=== PATIENT | female | born 1980 | race Caucasian/White ===

== ENCOUNTER 2019-06-30 11:46 | Outpatient (REF) | payer BC, SELFPAY ==
--- NOTE | 2019-06-30 11:05 | PAPFT_PTH ---
PATIENT: China Livingston LOC: [facility] U#:[id number] AGE/SX: 39/F ROOM: RE06/30/[address]: Kerri Alcaraz, PhD STARS SPECIALIST : 1980 BED: DIS: 06/30/2019 SPEC #: [id number] RECD: 06/30/19 12:56 STATUS: KAYE REMimi #: [id number] LOC: 06/30/19 11:[address]: Kerri Alcaraz DEPT: [facility] Cytology RECD BY: Daria Hernandez ENTERED: 06/30/19 12:56 SP TYPE: PAPFT OTHR DR: June Castro APRN Tissues: 1 - CX/ENDOCX FOR PAP SMEARS Procedures: PAP THIN PREP/UVM Screening HPV DNA PROBE Comments: [id number] (CHLAMYDIA/GC)
[2019-07-03 15:08] LABS: Chlamydia Result Negative (Negative); GC Result Negative (Negative)
== END 2019-06-30 12:06 ==
LOC: LBN 11:46
PROVIDERS: Visit Provider Nurse Practitioner
DX: Z12.4 Encounter for screening for malignant neoplasm of cervix (principal); Z11.3 Encounter for screening for infections with a predominantly sexual mode of transmission; Z11.51 Encounter for screening for human papillomavirus (HPV)
CPT/HCPCS: 87491; 87591; 88142; 87624

== ENCOUNTER 2021-11-14 18:03 | Outpatient (REF) | payer BC, SELFPAY ==
--- NOTE | 2021-11-14 15:30 | PAPFT_PTH ---
PATIENT: China Livingston LOC: [facility] U#:[id number] AGE/SX: 41/F ROOM: RE11/14/[address]: June Castro APRN : 1980 BED: DIS: 11/14/2021 SPEC #: [id number] RECD: 11/14/21 18:12 STATUS: KAYE REMimi #: [id number] LOC: 11/14/21 15:[address]: June Castro DEPT: [facility] Cytology RECD BY: Daria Hernandez Tissues: 1 - CX/ENDOCX FOR PAP SMEARS Procedures: PAP THIN PREP/UVM Screening HPV DNA PROBE Comments: [id number]
== END 2021-11-14 18:04 | disposition home or self-care (01) ==
LOC: LBN 18:03
DX: Z12.4 Encounter for screening for malignant neoplasm of cervix (principal); Z11.51 Encounter for screening for human papillomavirus (HPV)
CPT/HCPCS: 88142; 87624

== ENCOUNTER 2021-11-29 04:08 | Outpatient (CLI) | payer BC, SELFPAY ==
[2021-11-29 13:11] LABS: ALT 26 U/L (14-59); AST 20 U/L (15-37); Albumin 4.2 g/dL (3.4-5.0); Alkaline Phosphatase 51 U/L (46-116); Anion Gap 5.7 mmol/L (3-11); BUN 16 mg/dL (7-18); Bilirubin, Total 1.2 mg/dL (0.2-1.0); CO2 29.3 mmol/L (21.0-32.0); CREATININE 0.9 mg/dL (0.55-1.02); Calcium 9.4 mg/dL (8.5-10.1); Calculated LDL 88 mg/dL (<100); Chloride 105 mmol/L (98-107); Cholesterol 178 mg/dL (<200); Glucose 80 mg/dL (74-106); HDL Cholesterol 85 mg/dL (40-60); Potassium 4.7 mmol/L (3.5-5.1); Sodium 140 mmol/L (136-145); Total Protein 7.1 g/dL (6.4-8.2); Triglyceride 29 mg/dL (<150)
== END 2021-11-29 04:09 | disposition home or self-care (01) ==
DX: Z00.00 Encounter for general adult medical examination without abnormal findings (principal); Z13.220 Encounter for screening for lipoid disorders
CPT/HCPCS: 36415; 80053; 80061

== ENCOUNTER → 2022-01-26 00:10 | Outpatient (CLI) | payer BC, SELFPAY ==
--- OUTSIDE RECORDS SUMMARY | 2022-01-26 00:12 | XMS_ITS | Encounter Summary ---
:1980 Author Organization [facility] Address [address] [place] [address] Care Team Providers Name Role Phone Unavailable Primary Care Provider Unavailable Encounter Details Date Type Department Care Team Description 06/30/2007 Results Only [facility] conversion [address] [place] [address] Social History Tobacco Use Types Packs/Day Years Used Date Never Assessed Sex Assigned at Date Recorded Not on file documented as of this encounter Plan of Treatment Not on filedocumented as of this encounter Procedures Procedure Name Priority Date/Time Associated Diagnosis Comme [facility] CYTOPATHOLOGY Routine 06/30/2007 0:00 EST Results for this procedure are i n the results section . documented in this encounter Results CYTOPATHOLOGY (06/30/2007 0:00 EST) Pathology Report: CYTOPATHOLOGY REPORT [facility] Reports generated via electronic interface contain jericho ginal data; however they are lacking the format of the original re port. Caution should be taken when reading/interpreting unfo rmatted reports. Name: ? CHAIM LIVINGSTON ? Accession #: ? [id number] : ? 1980 (Age: 27) ??F ?Collect Date: ? 06/06 Location: ? [facility] ? Receive Date : ? 07/02/2007 Provider: ?SANG FERREIRA Copy to: ? Specimen/Source: ?ThinPrep Pap Test, E ndocervix, processed on schoox ThinPrep Imaging System, with manual evaluation Last Menstrual Period: ? 05/29/07 Hormonal/Contraceptive Status: ? Control Pills Other: ? HPVA - HPV testing requested if ASC-US on the current ThinPrep Pap test. ? SPECIMEN ADEQUACY ? Satisfactory for Evaluation - transformation zone component present GENERAL CATEGORIZATION ? Negative for Intraepithelial Lesion or Malignan cy INTERPRETATION ? Reactive cellular savannah nges associated with inflammation present (includes repair). ? Document reviewed and electronically signed by: ? TRAVIS MONTALVO [facility] ? Report Date: ??07/07/2007 16:47 End of Report Specimen Performing Organization Address City/State/ZIP Code Phon e Number [facility] [address] [place] [address] SERVICES [facility] [address] [place] [address] documented in this encounter Visit Diagnoses Not on filedocumented in this encounter
--- OUTSIDE RECORDS SUMMARY | 2022-01-26 00:12 | XMS_ITS | Encounter Summary ---
:1980 Author Organization [facility] Address [address] [place] [address] Care Team Providers Name Role Phone Mc Ernandez MD Primary Care Provider Unavailable Encounter Details Date Type Department Care Team Description 07/03/2019 Lab Requisition [facility] Eugene Alcaraz NP Pathology & Laboratory [address] [facility] [address] [place] [phone] (Wo rk) Social History Tobacco Use Types Packs/Day Years Used Date Never Assessed Sex Assigned at Date Recorded Not on file documented as of this encounter Plan of Treatment Not on filedocumented as of this encounter Procedures Procedure Name Priority Date/Time Associated Comments Diagnosis PAP TEST Today 06/30/2019 11:05 Results for this EST procedure are i n the results section. HUMAN PAPILLOMAVIRUS Today 06/30/2019 11:05 Res ults for this (HPV) DETECTION-HIGH EST procedu re are in RISK TYPES the results section. documented in this encounter Results HUMAN PAPILLOMAVIRUS (HPV) DETECTION-HIGH RISK TYPES (06/30/2019 11:05 EST) Human Papillomavirus NegativeComment: No Negative [facility] (HPV) Detection-High E6 or E7 mRNA is CENTER LABORATOR Y Types detected from HPV SERVICES types 16,18,31,33,35,39,45 ,51,52,56,58,59,66, and 68 by automobile tire builder mediated amplification. Specimen Pap Test - Cervix and/or Endocervix Performing Organization Address City/State/ZIP Code Phon e Number [facility] [address] [place] [address] SERVICES PAP TEST (06/30/2019 11:05 EST) Specimens A. Cervix and/or [facility] Endocervix, , CENTER ThinPrep Imaging LABORATORY System with Manual SERVICES Evaluation Specimen Adequacy Satisfactory for [facility] Evaluation - CENTER transformation zone LABORATORY component absent SERVICES General Negative for [facility] Categorization intraepithelial CENTER lesion or malignancy LABORATORY SERVICES Attestation . [facility] Electronically By the signature below, the attending physician certifies that they have personally conducted a gross and/or microscopic CENTER signed by Troy, examination of the described specimens and rendered or confirmed the above diagnosis. LABORATORY GRECIA Dugan CT(ASCP)(IAC) o n 07/13/2019 at 16 03 Clinical History NONE [facility] SERVICES HPV The result for the Human Pap illomavirus (HPV) Detection-High Risk Types is Negative. No E6 or E7 mRNA is detected from HPV types 16,18,31,33,35,39,45,51,52,56,58,59,66, and 68 by automobile tire builder mediated [facility] amplification.Testing was pe rformed on specimen [id number] and was resulted on 07/13/2019 0819 EST by ANN, LAB INSTRUMENT RESULTS IN [facility] SERVICES Scanned Images [facility] SERVICES Specimen Pap Test - Cervix and/or Endocervix Performing Organization Address City/State/ZIP Code Phon e Number [facility] [address] [place] [address] SERVICES documented in this encounter Visit Diagnoses Not on filedocumented in this encounter Care Teams Manager Cardiac Cath Relationship Specialty Start Date End Date Mc Ernandez MD PCP - General 06/11/15 documented as of this encounter
--- OUTSIDE RECORDS SUMMARY | 2022-01-26 00:12 | XMS_ITS | Encounter Summary ---
:1980 Author Organization Address [address] [place] [address] Care Team Providers Name Role Phone Mc Ernandez MD Primary Care Provider Unavailable Encounter Details Date Type Department Care Team Description 06/30/2019 Lab Requisition [facility] Unknown, Provider, Pathology & Laboratory [facility] [address] [place] [address] [place] [address] Social History Tobacco Use Types Packs/Day Years Used Date Never Assessed Sex Assigned at Date Recorded Not on file documented as of this encounter Plan of Treatment Not on filedocumented as of this encounter Procedures Procedure Name Priority Date/Time Associated Comments Diagnosis CHLAMYDIA/N. Routine 06/30/2019 11:05 Results for this GONORRHOEAE AMPLIFIED EST proced ure are in RNA, THINPREP the results section. documented in this encounter Results CHLAMYDIA/N. GONORRHOEAE AMPLIFIED RNA, THINPREP (06/30/2019 11:05 EST) Pathologist Sig nature Gonococcus Result Negative Negative [facility] SERVICES Chlamydia Result Negative Negative [facility] SERVICES Specimen Pap Test - Cervix and/or Endocervix Performing Organization Address City/State/ZIP Code Phon e Number [facility] [address] [place] [address] SERVICES documented in this encounter Visit Diagnoses Not on filedocumented in this encounter Care Teams Customer Care Specialist Relationship Specialty Start Date End Date Mc Ernandez MD PCP - General 06/11/15 documented as of this encounter
--- OUTSIDE RECORDS SUMMARY | 2022-01-26 00:12 | XMS_ITS | Encounter Summary ---
:1980 Author Organization [facility] Address [address] [place] [address] Care Team Providers Name Role Phone Unavailable Primary Care Provider Unavailable Encounter Details Date Type Department Care Team Description 08/25/2009 Orders Only [facility] Drew Weir, Laboratory Services - ASSOCIATE DEAN [facility] [address] [place] [address] [place], [place] [address] [phone] Social History Tobacco Use Types Packs/Day Years Used Date Never Assessed Sex Assigned at Date Recorded Not on file documented as of this encounter Plan of Treatment Not on filedocumented as of this encounter Procedures Procedure Name Priority Date/Time Associated Diagnosis Comme [facility] CYTOPATHOLOGY Routine 08/25/2009 0:00 EST Results for this procedure are i n the results section . documented in this encounter Results CYTOPATHOLOGY (08/25/2009 0:00 EST) Pathology Report: CYTOPATHOLOGY REPORT ? [facility] ? LAB Reports generated via [employer] interface contain original data; ? however they are lacking the format of the original report. ? Caution should be taken when reading/interpreting unformatted reports. ? Name: ? DIEGO CHAIM ? Accession #: ? [id number] ? : ? 1980 (Age: 29) ??F ?Collect Date: ? 08/25/2009 ? Location: ? [facility] ? Receive Date: ? 08/25/2009 ? Provider: ?DREW D C HAMBERLAIN ASSOCIATE DEAN ? Copy to: ? Specimen/Source: ? Pap Test, Cervix/Endocervix, ThinPrep Imaging System ? with manual evaluation ? Last Menstrual Period: ? 12/28/09 ? Hormonal/Contraceptive Statu s: ? Control Pills ? Previous Gynecologic Patholo gy: ? Yes: Abn pap ? HPV ? Treatment History: ? Colposcopy: 2006 ? SPECIMEN ADEQUACY ? Satisfactory for Eval uation ? - transformation zone compon ent present ? GENERAL CATEGORIZATION ? Negative for Intraepi thelial Lesion or Malignancy ? Document reviewed and electr onically signed by: ? Hannah Gee, SCT( ASCP) ? Report Date: ??// 2009 15:28 ? End of Report ? Specimen Performing Organization Address City/State/ZIP Code Phon e Number [facility] [address] [place] [address] SERVICES [facility] [address] [place] [address] documented in this encounter Visit Diagnoses Not on filedocumented in this encounter
--- OUTSIDE RECORDS SUMMARY | 2022-01-26 00:12 | XMS_ITS | Encounter Summary ---
:1980 Author Organization [facility] Address [address] [place] [address] Care Team Providers Name Role Phone Unavailable Primary Care Provider Unavailable Encounter Details Date Type Department Care Team Description 10/18/2010 Results Only [facility] Tre Combs CNM Laboratory Services - [address] [place] [address] [address] [facility] [place] [address] [phone] Social History Tobacco Use Types Packs/Day Years Used Date Never Assessed Sex Assigned at Date Recorded Not on file documented as of this encounter Plan of Treatment Not on filedocumented as of this encounter Procedures Procedure Name Priority Date/Time Associated Diagnosis Comme [facility] CYTOPATHOLOGY Routine 10/18/2010 0:00 EDT Results for this procedure are i n the results section . documented in this encounter Results CYTOPATHOLOGY (10/18/2010 0:00 EDT) Pathology Report: CYTOPATHOLOGY REPORT ? [facility] ? LAB Reports generated via electr onic interface contain original data; ? however they are lacking the format of the original report. ? Caution should be taken when reading/interpreting unformatted reports. ? Name: ? CHAIM LIVINGSTON ? Accession #: ? [id number] ? : ? 1980 (Age: 30) ??F ?Collect Date: ? 10/18/2010 ? Location: ? [facility] ? Receive Date: ? 10/19/2010 ? Provider: ?ANEA LELON G CNM ? Copy to: ? Specimen/Source: ? Pap Test, Source Not Provided, ThinPrep Imaging System ?? with manual evaluation ? Last Menstrual Period: ? 5/20/10 ? Menstrual/ Status: ? Post ? Previous Gynecologic Patholo gy: ? Yes: abnormal pap ? Treatment History: ? Colposcopy: 2006, paps neg s oyla ? SPECIMEN ADEQUACY ? Satisfactory for Eval uation ? - transformation zone compon ent present ? GENERAL CATEGORIZATION ? Negative for Intraepi thelial Lesion or Malignancy ? Document reviewed and electr onically signed by: ? Garland Stumler, CT( CP) ? Report Date: ??03/21/ 2011 13:14 ? End of Report ? Specimen Performing Organization Address City/State/ZIP Code Phon e Number [facility] [address] [place] [address] SERVICES [facility] [address] [place] [address] documented in this encounter Visit Diagnoses Not on filedocumented in this encounter
--- OUTSIDE RECORDS SUMMARY | 2022-01-26 00:12 | XMS_ITS | Encounter Summary ---
:1980 Author Organization [facility] Address [address] [place] [address] Care Team Providers Name Role Phone Mc Ernandez MD Primary Care Provider Unavailable Encounter Details Date Type Department Care Team Description 11/15/2021 Lab Requisition [facility] June Castro NP Encounter for other Pathology & [address] [facility] Laboratory Medicine [place], [place] [address] [facility] [address] [place], [place] [phone] (Wo rk) [address] [phone] Social History Tobacco Use Types Packs/Day Years Used Date Never Assessed Sex Assigned at Date Recorded Not on file documented as of this encounter Plan of Treatment Not on filedocumented as of this encounter Procedures Procedure Name Priority Date/Time Associated Comments Diagnosis PAP TEST Today 11/14/2021 15:30 Encounter for other Resu lts for this EDT general examination procedur e are in the results section. HUMAN PAPILLOMAVIRUS Today 11/14/2021 15:30 Encounter for ot her Results for this (HPV) DETECTION-HIGH EDT general examination procedure are in RISK TYPES the results section. documented in this encounter Results HUMAN PAPILLOMAVIRUS (HPV) DETECTION-HIGH RISK TYPES (11/14/2021 15:30 EDT) Pathologist Sig nature Human Papillomavirus Negative Negative [facility] (HPV) Detection-High LABORATORY SERVICES Types Specimen Pap Test - Cervix and/or Endocervix Performing Organization Address City/State/ZIP Code Phon e Number [facility] [address] [place] [address] SERVICES PAP TEST (11/14/2021 15:30 EDT) Specimens A. Cervix and/or [facility] Endocervix , ThinPrep CENTER Imaging System with LABORATORY Manual Evaluation SERVICES Specimen Adequacy Satisfactory for [facility] MEDICAL Evaluation - CENTER transformation zone LABORATORY component present SERVICES General Negative for [facility] intraepithelial HARLEM lesion or malignancy LABORATORY SERVICES Attestation . [facility] CENTER signed by IRINEO Cline CT(ASCP ) on SERVICES 11/18/2021 at 08 09 Clinical History See below [facility] LABORATORY SERVICES HPV The result for the Human Pap illomavirus (HPV) Detection-High Risk Types is Negative. No E6 or E7 mRNA is detected from HPV types 16,18,31,33,35,39,45,51,52,56,58,59,66, and 68 by board mixer tender mediated [facility] amplification.Testing was pe rformed on specimen [id number] and was resulted on 11/18/2021 0803 EDT by ANN, LAB INSTRUMENT RESULTS IN [facility]ORATORY SERVICES Performing Lab [facility] LABORATORY SERVICES Scanned Images [facility] LABORATORY SERVICES Specimen Pap Test - Cervix and/or Endocervix Performing Organization Address City/State/ZIP Code Phon e Number [facility] [address] [place] [address] SERVICES documented in this encounter Visit Diagnoses Diagnosis Encounter for other general examination documented in this encounter Care Teams Radiology Equipment Servicer Relationship Specialty Start Date End Date Mc Ernandez MD PCP - General 06/11/15 documented as of this encounter
--- OUTSIDE RECORDS SUMMARY | 2022-01-26 00:12 | XMS_ITS | Encounter Summary ---
:1980 Author Organization [facility] Address [address] [place] [address] Care Team Providers Name Role Phone Unavailable Primary Care Provider Unavailable Encounter Details Date Type Department Care Team Description 10/27/2013 Results Only [facility] Jada Morrow, [address] [phone] (Wo rk) Social History Tobacco Use Types Packs/Day Years Used Date Never Assessed Sex Assigned at Date Recorded Not on file documented as of this encounter Plan of Treatment Not on filedocumented as of this encounter Procedures Procedure Name Priority Date/Time Associated Diagnosis Comme nts PAP TEST- RESULT Routine 10/27/2013 0:00 EDT Resu lts for this ONLY procedure are i n the results section. documented in this encounter Results PAP TEST- RESULT ONLY (10/27/2013 0:00 EDT) Pathology Report: CYTOPATHOLOGY REPORT [facility] Reports generated via electronic interface contain jericho ginal data; however they are lacking the format of the original re port. Caution should be taken when reading/interpreting unfo rmatted reports. Name: ? CHAIM LIVINGSTON ? Accession #: ? [id number] ? : ? 1980 (Age: 33) ??F ?Collect Da te: ? 10/27/2013 ? Location: ? [facility] ? Receive Date: ? 014 ? Provider: JADA PARIS CN Copy to: SANG FERREIRA ? Final Report SPECIMEN ADEQUACY ? Satisfactory for Evaluation - transformation zone component present GENERAL CATEGORIZATION ? Negative for Intraepithelial Lesion or Malignan cy ?? Last Menstrual Period: 11/06/12 Menstrual/ Status: ?? Previous Gynecologic Pathology: Yes: Abn Pap ? 2006, P aps neg since Treatment History: Colposcopy: 2005 Specimen/Source: ??Pap Test, Cervix/Endocervix, ThinPr ep Imaging System with manual evaluation Document reviewed and electronically signed by: ? Vi Mc, CT(ASCP) ? Report ??Date: 11/02/2013 09:40 HPV with Pap Test ? Date Ordered: ? 11/02/2013 ? Status: ?? Signed Out ?Date Complete: ? 11/04/2013 ? By: ??S ystem Interface ? Date Reported: ? 11/04/2013 ? Interpretation RESULT: Negative for HPV. No E6 or E7 mRNA is detected from HPV types 16,18,31,3 3,35, 39,45,51,52,56,58,59,66, and 68 by rehabilitation construction specialist media marybeth amplification. Comments Document reviewed and electronically signed by: ? System Interface ? Report date: 11/04/2013 By the signature above, the attending physician certif ies that he/she has personally conducted a gross and/or microscopic examin ation of the described specimens and rendered or confirmed the above diagnosi s. End of Report Specimen Performing Organization Address City/State/ZIP Code Phon e Number [facility] [address] [place] [address] SERVICES [facility] [address] [place] [address] documented in this encounter Visit Diagnoses Not on filedocumented in this encounter
--- OUTSIDE RECORDS SUMMARY | 2022-01-26 00:12 | XMS_ITS | Encounter Summary ---
:1980 Author Organization [facility] Address [address] [place] [address] Care Team Providers Name Role Phone Unavailable Primary Care Provider Unavailable Encounter Details Date Type Department Care Team Description 08/14/2005 Results Only [facility] Young MD [facility] conversion [address] [place] [address] [place] [address] Social History Tobacco Use Types Packs/Day Years Used Date Never Assessed Sex Assigned at Date Recorded Not on file documented as of this encounter Plan of Treatment Not on filedocumented as of this encounter Procedures Procedure Name Priority Date/Time Associated Diagnosis Comme nts SURGICAL PATHOLOGY Routine 08/14/2005 0:00 EST Re sults for this procedure are i n the results section. documented in this encounter Results SURGICAL PATHOLOGY (08/14/2005 0:00 EST) Pathology Report: SURGICAL PATHOLOGY REPORT [facility] Reports generated via electronic interface contain jericho ginal data; LAB however they are lacking the format of the original re port. Caution should be taken when reading/interpreting unfo rmatted reports. Name: ? CHAIM LIVINGSTON ? Accession #: ? [id number] ? : ? 1980 (Age: 25) ??F ? Collect Date: ? 08/14/2005 ? Location: ? [facility] ? Receive Date: ? 006 ? Provider: JENNIFER YOUNG MD Copy to: LEDA VARGAS MD ? Final Pathologic Diagnosis: A. ?Cervix, 2 o' clock, biopsy: 1. ?Squamous metaplasia, mild chronic inf lammation and reactive epithelial changes. 2. ?No squamous intraepithelial lesion id entified. B. ?Cervix, 6 o' clock, biopsy: 1. ?Endocervica l tissue with acute and chronic cervicitis, squamous metaplasia and reactive epithelial changes. 2. ?No squamous intraepithelial lesion id entified. Document reviewed and electronically signed by: DAVID GROSSMAN MD Report ??Date: 08/16/2005 17:01 By the signature above, the attending physician certif ies that he/she has personally conducted a gross and/or microscopic examin ation of the described specimens and rendered or confirmed the above diagnosi s. Specimen(s) Received: ? Cx bx @ A. ?2:00 B. ?6:00 Clinical History: ? 05/21/05 PAP ASCUS +HPV; LMP: 08/05/05 Gross Description: ? Received in formalin labelled Coburn and cx bx 2 o' clock is a rivera-white 0.6 x 0.4 x 0.3 cm soft tiss ue fragment. ??The specimen is entirely submitted as (A). Received in formalin mercedes d Coburn and cx bx 6 o' clock is a rivera-white 0.4 x 0.3 x 0.3 cm soft tissue f ragment. ??The specimen is entirely submitted as (B). Jose Villarreal)/[facility] End of Report Specimen Performing Organization Address City/State/ZIP Code Phon e Number [facility] [address] [place] [address] SERVICES [facility] [address] [place] [address] documented in this encounter Visit Diagnoses Not on filedocumented in this encounter
--- OUTSIDE RECORDS SUMMARY | 2022-01-26 00:12 | XMS_ITS | Encounter Summary ---
:1980 Author Organization [facility] Address [address] [place] [address] Care Team Providers Name Role Phone Unavailable Primary Care Provider Unavailable Encounter Details Date Type Department Care Team Description 08/24/2008 Before PRISM Converted [facility] - Bora Gay PA Visit (Maple) Maple conversion [address] [place] [address] Social History Tobacco Use Types Packs/Day Years Used Date Never Assessed Sex Assigned at Date Recorded Not on file documented as of this encounter Plan of Treatment Not on filedocumented as of this encounter Procedures Procedure Name Priority Date/Time Associated Diagnosis Comme nts CYTOPATHOLOGY Routine 08/24/2008 0:00 EST Results for this procedure are i n the results section . documented in this encounter Results CYTOPATHOLOGY (08/24/2008 0:00 EST) Pathology Report: CYTOPATHOLOGY REPORT ? [facility] ? LAB Reports generated via [employer] interface contain original data; ? however they are lacking the format of the original report. ? Caution should be taken when reading/interpreting unformatted reports. ? Name: ? CHAIM CORTEZ ? Accession #: ? [id number] ? : ? 1980 (Age: 28) ??F ?Collect Date: ? 08/24/2008 ? Location: ? [facility] ? Receive Date: ? 08/26/2008 ? Provider: ?SANG SIM ON PA ? Copy to: ? Specimen/Source: ? Pap Test, Cervix/Endocervix, ThinPrep Imaging System ? with manual evaluation ? Last Menstrual Period: ? 12/28/08 ? Hormonal/Contraceptive Statu s: ? Control Pills ? Previous Gynecologic Patholo gy: ? HPV: + ? Treatment History: ? Cervical biopsy: X1 ? Other: ? HPVA - HPV testing requested if ASC-US on the current ThinPrep Pap test. ? SPECIMEN ADEQUACY ? Satisfactory for Eval uation ? - transformation zone compon ent present ? GENERAL CATEGORIZATION ? Negative for Intraepi thelial Lesion or Malignancy ? INTERPRETATION ? Reactive cellular savannah nges associated with inflammation present (includes ?? repair). ? Document reviewed and electr onically signed by: ? Tayler L. Singh, MD ? Report Date: ??01/26/ 2009 12:45 ? End of Report ? Specimen Performing Organization Address City/State/ZIP Code Phon e Number [facility] [address] [place] [address] SERVICES [facility] [address] [place] [address] documented in this encounter Visit Diagnoses Not on filedocumented in this encounter
--- OUTSIDE RECORDS SUMMARY | 2022-01-26 00:12 | XMS_ITS | Clinical Summary ---
:1980 Author Organization [facility] Address [address] [place] [address] Care Team Providers Name Role Phone Mc Ernandez MD Primary Care Provider Unavailable Encounters Date Type Specialty Care Team Description 11/15/2021 Lab Requisition Clinical Laboratory June Castro E ncounter for other [employer] general examina tion from Last 3 Months Social History Tobacco Use Types Packs/Day Years Used Date Never Assessed Sex Assigned at Date Recorded Not on file Plan of Treatment Health Maintenance Due Date Last Done Comments Hepatitis C Screen 1980 COVID-19 Vaccine (1) 1986 Procedures Procedure Name Priority Date/Time Associated Comments Diagnosis PAP TEST Today 11/14/2021 15:30 Encounter for other Resu lts for this EDT general examination procedur e are in the results section. HUMAN PAPILLOMAVIRUS Today 11/14/2021 15:30 Encounter for ot her Results for this (HPV) DETECTION-HIGH EDT general examination procedure are in RISK TYPES the results section. from Last 3 Months Results PAP TEST (11/14/2021 15:30 EDT) Specimens A. Cervix and/or [facility] Endocervix , ThinPrep CENTER Imaging System with LABORATORY Manual Evaluation SERVICES Specimen Adequacy Satisfactory for [facility] MEDICAL Evaluation - CENTER transformation zone LABORATORY component present SERVICES General Negative for [facility] intraepithelial [place] lesion or malignancy LABORATORY SERVICES Attestation . [facility] MEDICAL Electronically CENTER signed by IRINEO Cline CT(ASCP ) on SERVICES 11/18/2021 at 08 09 Clinical History See below [facility] SERVICES HPV The result for the Human Pap illomavirus (HPV) Detection-High Risk Types is Negative. No E6 or E7 mRNA is detected from HPV types 16,18,31,33,35,39,45,51,52,56,58,59,66, and 68 by core layer machine operator mediated [facility] amplification.Testing was p erformed on specimen [id number] and was resulted on 11/18/2021 0803 EDT by ANN, LAB INSTRUMENT RESULTS IN [facility] SERVICES Performing Lab [facility] SERVICES Scanned Images [facility] SERVICES Specimen Pap Test - Cervix and/or Endocervix Performing Organization Address City/State/ZIP Code Phon e Number [facility] [address] [place] [address] SERVICES HUMAN PAPILLOMAVIRUS (HPV) DETECTION-HIGH RISK TYPES (11/14/2021 15:30 EDT) Pathologist Sig nature Human Papillomavirus Negative Negative [facility] (HPV) Detection-High LABORATORY SERVICES Types Specimen Pap Test - Cervix and/or Endocervix Performing Organization Address City/State/ZIP Code Phon e Number [facility] [address] [place] [address] SERVICES from Last 3 Months 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
--- NOTE | 2022-01-26 08:21 | DI.MAMMO_ITS ---
Exam(s) MAMMO SCREENING EXAM: MAMMO SCREENING CLINICAL HISTORY: screening,z12.39 TECHNIQUE: Bilateral full field digital CC and MLO mammographic images were obtained with 3D tomosyn thesis and utilizing computer aided detection (CAD). COMPARISON: None. FINDINGS: Masses/Architectural Distortion: There is an area of asymmetric breast tissue in the posterior centra l breast seen on the right CC view. Microcalcifications: No suspicious pleomorphic-type are seen. Skin Thickening/Nipple Retraction: None. IMPRESSION: 1. Asymmetric density in the posterior central breast seen on the right CC view. 2. Spot compression is recommended for further evaluation. Ultrasound may be indicated at that time. BI-RADS Category 0 - Assessment Incomplete: Need additional imaging evaluation Breast Density - Category C - Heterogeneously dense Breast density category C or D implies that the patient has dense breast tissue. Dense breast tissue is very common and is not abnormal but dense breast tissue can make it harder to find cancer on a ma mmogram. Also, dense breast tissue may increase their breast cancer risk. This information about the result of the mammogram report was provided to the patient to raise their awareness. Use this report when you speak with the patient about their risks for breast cancer, which includes their family hist ory. At that time, you may recommend for more screening tests (Ultrasound or MRI) as they might be us eful based on their risk. A negative radiographic report should not delay biopsy if a dominant or clinically suspicious mass is present. Up to ten percent of cancers are not identified on mammography. A negative report may reinforce clinical impression. Adenosis and dense breasts may obscure an underlying neoplasm. False positive reports average 6 to 10%. Patient will receive a letter notifying them of these results.
== END ==
DX: Z12.31 Encounter for screening mammogram for malignant neoplasm of breast (principal); R92.8 Other abnormal and inconclusive findings on diagnostic imaging of breast
CPT/HCPCS: 77063; 77067

== ENCOUNTER → 2022-02-13 01:47 | Outpatient (CLI) | payer BC, SELFPAY ==
--- NOTE | 2022-02-13 | DI.MAMMO_ITS ---
Exam(s) MG MAMMO SCREEN CALL BACK UNI US BREAST RT COMPLETE EXAM: MG MAMMO SCREEN CALL BACK UNI and U/S breast RT complete CLINICAL HISTORY: ASYMMETRIC DENSITY RT BREAST. TECHNIQUE: Craniocaudal and mediolateral oblique Full Field Digital Mammography views of the right b reast with Computer Aided Diagnosis followed by Tomosynthesis and right breast ultrasound. COMPARISON: Comparison with prior examinations. FINDINGS: Mammography/Tomosynthesis: Masses/Architectural Distortion: There is again seen asymmetric breast tissue in the posterior centra l right breast but no discrete mass is identified. Microcalcifictions: No suspicious pleomorphic-type are seen. Skin Thickening/Nipple Retraction: None. Complete right breast US: Echotexture: Normal appearance of the glandular tissue. Shadowing: No suspicious foci. Cyst: None. Solid lesions: None seen. Ductal dilation: None. IMPRESSION: 1. No evidence of malignancy is noted. 2. A six-month follow-up right mammogram is recommended for re-evaluation. 3. The findings were discussed with the patient on the date of the examination. BI-RADS Category 3 - 6 month - Probably Benign Finding: Recommend follow-up imaging in 6 months Breast Density - Category C - Heterogeneously dense Breast density Category C or D implies that the patient has dense breast tissue. Dense breast tissue can make it harder to find cancer on a mammogram. Dense breast tissue is also associated with an incr eased risk of breast cancer. This information about the result of the mammogram report was provided to the patient to raise their awareness. Use this report when you speak with the patient about their risks for breast cancer, which includes their family history. At that time, you may recommend additional screening tests (Ultrasoun d or MRI) as these tests may add significant information. A negative radiographic report should not delay biopsy if a dominant or clinically suspicious mass is present. Up to ten percent of cancers are not identified on mammography. A negative report may reinforce clinical impression. Adenosis and dense breasts may obscure an underlying neoplasm. False positive reports average 6 to 10%. Patient will receive a letter notifying them of these results.
== END ==
DX: Z12.31 Encounter for screening mammogram for malignant neoplasm of breast (principal); R92.8 Other abnormal and inconclusive findings on diagnostic imaging of breast; N64.59 Other signs and symptoms in breast
CPT/HCPCS: 76642; 77063; 77067

== ENCOUNTER 2022-10-15 02:02 | Outpatient (CLI) | payer BC, SELFPAY ==
--- NOTE | 2022-10-15 | DI.US_ITS ---
Exam(s) MG MAMMO DIAGNOSTIC UNI US BREAST RT LIMITED EXAM: MG MAMMO DIAGNOSTIC UNI and U/S breast RT limited CLINICAL HISTORY: 6 MO F/U, ABNL MAMMO, ASYMMETRIC DENSITY. TECHNIQUE: Craniocaudal and mediolateral oblique Full Field Digital Mammography views of the right b reast with Computer Aided Diagnosis followed by Tomosynthesis and right breast ultrasound. COMPARISON: US US BREAST RT LIMITED from 10/15/2022 FINDINGS: Mammography/Tomosynthesis: Masses/Architectural Distortion: None seen. Microcalcifictions: No suspicious pleomorphic-type are seen. Skin Thickening/Nipple Retraction: None. Limited right breast US: Echotexture: Normal appearance of the glandular tissue. Shadowing: No suspicious foci. Cyst: None. Solid lesions: None seen. Ductal dilation: None. IMPRESSION: 1. No definite evidence of malignancy is noted. 2. A six-month follow-up right mammogram is recommended. 3. The findings were discussed with the patient on the date of the examination. BI-RADS Category 3 - 6 month - Probably Benign Finding: Recommend follow-up imaging in 6 months Breast Density - Category C - Heterogeneously dense Breast density Category C or D implies that the patient has dense breast tissue. Dense breast tissue can make it harder to find cancer on a mammogram. Dense breast tissue is also associated with an incr eased risk of breast cancer. This information about the result of the mammogram report was provided to the patient to raise their awareness. Use this report when you speak with the patient about their risks for breast cancer, which includes their family history. At that time, you may recommend additional screening tests (Ultrasoun d or MRI) as these tests may add significant information. A negative radiographic report should not delay biopsy if a dominant or clinically suspicious mass is present. Up to ten percent of cancers are not identified on mammography. A negative report may reinforce clinical impression. Adenosis and dense breasts may obscure an underlying neoplasm. False positive reports average 6 to 10%. Patient will receive a letter notifying them of these results.
== END 2022-10-15 02:22 ==
LOC: DI 02:02
PROVIDERS: PCP Nurse Practitioner Family; Visit Provider Nurse Practitioner Family
DX: R92.8 Other abnormal and inconclusive findings on diagnostic imaging of breast (principal); N64.59 Other signs and symptoms in breast
CPT/HCPCS: 76642; 77061; 77065; G0279

== ENCOUNTER 2022-11-20 16:43 | Outpatient (REF) | payer BC, SELFPAY ==
--- NOTE | 2022-11-20 14:30 | SKI_PTH ---
PATIENT: China Livingston LOC: [facility] U#:[id number] AGE/SX: 42/F ROOM: RE11/20/[address]: Juan Jose Harrell DNP : 1980 BED: DIS: 11/20/2022 SPEC #: [id number] RECD: 11/21/22 12:37 STATUS: KAYE REQ #: [id number] LOC: 11/20/22 14:[address]: Juan Jose Alvarado DEPT: Surgical Specimen RECD BY: Daria Hernandez Tissues: 1 - SKIN BIOPSY(SHAVE/PUNCH) Procedures: SKIN LEVEL 4 Comments: [id number]
== END 2022-11-20 16:44 | disposition home or self-care (01) ==
LOC: LBN 16:43
PROVIDERS: PCP Nurse Practitioner Family; Visit Provider Nurse Practitioner Family
DX: D23.5 Other benign neoplasm of skin of trunk
CPT/HCPCS: 88305

== ENCOUNTER → 2023-06-17 01:21 | Outpatient (CLI) | payer BC, SELFPAY ==
--- NOTE | 2023-06-17 07:30 | DI.MAMMO_ITS ---
Exam(s) MAMMO DIAGNOSTIC BI EXAM: MAMMO DIAGNOSTIC BI CLINICAL HISTORY: 3-6 mo f/u,r/u mammo, r92.8,z09. TECHNIQUE: Bilateral CC and MLO mammographic images were obtained with 3D tomosynthesis technique an d utilizing computer aided detection (CAD). COMPARISON: Prior mammograms were reviewed, as were prior breast ultrasounds. FINDINGS: Previously described findings in the right breast remain unchanged and were shown to be previously le ss impressive on spot compression views and negative on 2 ultrasound examinations. There are no new spiculated masses nor malignant-appearing microcalcification groups in either breast . No new architectural distortion or skin thickening-traction IMPRESSION: No radiographic evidence of malignancy Appropriate follow-up is to keep this patient on a yearly mammogram schedule, with earlier imaging if a self detected breast change is noted.. The patient was informed of the findings and follow-up recommendations by myself prior to leaving the department today. BI-RADS Category 1 - Negative Breast Density - Category C - Heterogeneously dense Breast density Category C or D implies that the patient has dense breast tissue. Dense breast tissue can make it harder to find cancer on a mammogram. Dense breast tissue is also associated with an incr eased risk of breast cancer. This information about the result of the mammogram report was provided to the patient to raise their awareness. Use this report when you speak with the patient about their risks for breast cancer, which includes their family history. At that time, you may recommend additional screening tests (Ultrasoun d or MRI) as these tests may add significant information. A negative radiographic report should not delay biopsy if a dominant or clinically suspicious mass is present. Up to ten percent of cancers are not identified on mammography. A negative report may reinforce clinical impression. Adenosis and dense breasts may obscure an underlying neoplasm. False positive reports average 6 to 10%. Patient will receive a letter notifying them of these results.
== END ==
PROVIDERS: PCP Nurse Practitioner Family; Visit Provider Nurse Practitioner Family
DX: R92.8 Other abnormal and inconclusive findings on diagnostic imaging of breast (principal); Z09 Encounter for follow-up examination after completed treatment for conditions other than malignant neoplasm
CPT/HCPCS: 77062; 77066; G0279

== ENCOUNTER 2024-06-22 01:31 | Outpatient (CLI) | payer BC, SELFPAY ==
--- NOTE | 2024-06-22 13:47 | DI.MAMMO_ITS ---
Exam(s) MAMMO SCREENING EXAM: MAMMO SCREENING CLINICAL HISTORY: screening,Z12.39. TECHNIQUE: Bilateral full field digital CC and MLO mammographic images were obtained with 3D tomosyn thesis and utilizing computer aided detection (CAD). COMPARISON: Prior mammograms were reviewed. Prior ultrasounds reviewed FINDINGS: No right breast findings. The left breast there asymmetric density possible nodule posteriorly in the upper outer quadrant loca marybeth approximately 12 cm in from the nipple measuring approximately 2 x 1.2 cm. Scar compression view and ultrasound recommended There are no new malignant appearing microcalcification groups. There is no significant architectural distortion nor skin thickening-retraction. IMPRESSION: 1. No radiographic evidence of malignancy in right breast. 2. New asymmetric density-possible 2 x 1.2 cm nodule located posteriorly in the upper-outer quadrant of the left breast. Spot compression CC and MLO views as well as left breast ultrasound recommended. BI-RADS Category 0 - Incomplete: Need additional imaging evaluation Breast Density - Category C - Heterogeneously dense Breast density Category C or D implies that the patient has dense breast tissue. Dense breast tissue can make it harder to find cancer on a mammogram. Dense breast tissue is also associated with an incr eased risk of breast cancer. This information about the result of the mammogram report was provided to the patient to raise their awareness. Use this report when you speak with the patient about their risks for breast cancer, which includes their family history. At that time, you may recommend additional screening tests (Ultrasoun d or MRI) as these tests may add significant information. A negative radiographic report should not delay biopsy if a dominant or clinically suspicious mass is present. Up to ten percent of cancers are not identified on mammography. A negative report may reinforce clinical impression. Adenosis and dense breasts may obscure an underlying neoplasm. False positive reports average 6 to 10%. Patient will receive a letter notifying them of these results.
== END 2024-06-22 01:51 ==
LOC: DI 01:31
PROVIDERS: PCP Nurse Practitioner Family; Visit Provider Nurse Practitioner Family
DX: Z12.31 Encounter for screening mammogram for malignant neoplasm of breast (principal); R92.333 Mammographic heterogeneous density, bilateral breasts
CPT/HCPCS: 77063; 77067

== ENCOUNTER 2024-07-01 01:14 | Outpatient (CLI) | payer BC, SELFPAY ==
--- NOTE | 2024-07-01 13:24 | DI.MAMMO_ITS ---
Exam(s) MG MAMMO SCREEN CALL BACK UNI US BREAST LT LIMITED EXAM: MG MAMMO SCREEN CALL BACK UNI and U/S breast LT limited CLINICAL HISTORY: New asymmetric density/possible nodule 2x1.2 cm UOQ posteriorly lt breast. TECHNIQUE: Craniocaudal and mediolateral oblique Full Field Digital Mammography views of the left br east with Computer Aided Diagnosis followed by Tomosynthesis and left breast ultrasound. COMPARISON: Comparison is made with prior examinations. FINDINGS: Mammography/Tomosynthesis: Masses/Architectural Distortion: There is again seen asymmetric breast tissue in the upper outer quad rant of the left breast. No area of architectural distortion is seen. No associated microcalcificat ions are present. Microcalcifictions: No suspicious pleomorphic-type are seen. Skin Thickening/Nipple Retraction: None. Limited left breast US: Echotexture: Normal appearance of the glandular tissue. Shadowing: No suspicious foci. Cyst: None. Solid lesions: None seen. Ductal dilation: None. IMPRESSION: 1. No definite evidence of malignancy is seen at this time. 2. A six-month follow-up left mammogram is requested for re-evaluation. 3. The findings were discussed with the patient on the date of the examination. BI-RADS Category 3 - 6 month - Probably Benign Finding: Recommend follow-up imaging in 6 months Breast Density - Category C - Heterogeneously dense Breast density Category C or D implies that the patient has dense breast tissue. Dense breast tissue can make it harder to find cancer on a mammogram. Dense breast tissue is also associated with an incr eased risk of breast cancer. This information about the result of the mammogram report was provided to the patient to raise their awareness. Use this report when you speak with the patient about their risks for breast cancer, which includes their family history. At that time, you may recommend additional screening tests (Ultrasoun d or MRI) as these tests may add significant information. A negative radiographic report should not delay biopsy if a dominant or clinically suspicious mass is present. Up to ten percent of cancers are not identified on mammography. A negative report may reinforce clinical impression. Adenosis and dense breasts may obscure an underlying neoplasm. False positive reports average 6 to 10%. Patient will receive a letter notifying them of these results.
== END 2024-07-01 01:34 ==
LOC: DI 01:14
PROVIDERS: PCP Nurse Practitioner Family; Visit Provider Nurse Practitioner Family
DX: Z12.31 Encounter for screening mammogram for malignant neoplasm of breast (principal); R92.333 Mammographic heterogeneous density, bilateral breasts; D24.2 Benign neoplasm of left breast
CPT/HCPCS: 76642; 77063; 77067

== ENCOUNTER 2024-12-30 00:33 | Outpatient (CLI) | payer BC, SELFPAY ==
--- NOTE | 2024-12-30 | DI.US_ITS ---
Exam(s) MG MAMMO DIAGNOSTIC UNI US BREAST LT LIMITED EXAM: MAMMO DIAGNOSTIC UNI CLINICAL HISTORY: 3-6 MON F/U,z09,r92.8,abnl mammo lt breast,asymmetric lt breast tissue. COMPARISON: 2021 through 2023 TECHNIQUE: Craniocaudal and mediolateral oblique Full Field Digital Mammography views of the left br east with Computer Aided Diagnosis followed by Tomosynthesis and left breast ultrasound. CC MLO spot compression views of the posterior upper outer quadrant along with stoma symphysis were a lso performed. FINDINGS: Mammography/Tomosynthesis: Masses: None seen. An area of increased density in the upper outer quadrant of the left breast again noted. It appears to disperse on spot compression views and has the appearance of an island of fibr oglandular tissue. Architectural Distortion: None seen. Microcalcifications: No suspicious pleomorphic-type are seen. Skin Thickening/Nipple Retraction: None. Left breast US: Echotexture: Normal appearance of the glandular tissue. Shadowing: No suspicious foci. Cyst: None. Solid lesions: None seen. Ductal dilation: None. IMPRESSION: 1. No evidence of malignancy is noted. 2. Unless there is more urgent need, follow-up screening mammography is recommended in 6 months to hi p both breasts back on yearly screening schedule. BI-RADS Category 3 - Annual - Resume Annual Screening Breast Density - Category C - The breast are heterogeneously dense, which may obscure small masses. Breast density Category C or D implies that the patient has dense breast tissue. Dense breast tissue can make it harder to find cancer on a mammogram. Dense breast tissue is also associated with an incr eased risk of breast cancer. This information about the result of the mammogram report was provided to the patient to raise their awareness. Use this report when you speak with the patient about their risks for breast cancer, which includes their family history. At that time, you may recommend additional screening tests (Ultrasoun d or MRI) as these tests may add significant information. A negative radiographic report should not delay biopsy if a dominant or clinically suspicious mass is present. Up to ten percent of cancers are not identified on mammography. A negative report may reinforce clinical impression. Adenosis and dense breasts may obscure an underlying neoplasm. False positive reports average 6 to 10%. Patient will receive a letter notifying them of these results.
== END 2024-12-30 00:53 ==
LOC: DI 00:33
PROVIDERS: PCP Nurse Practitioner Family; Visit Provider Nurse Practitioner Family
DX: Z09 Encounter for follow-up examination after completed treatment for conditions other than malignant neoplasm (principal); R92.8 Other abnormal and inconclusive findings on diagnostic imaging of breast
CPT/HCPCS: 76642; 77061; 77065; G0279

== ENCOUNTER 2025-01-14 01:19 | Outpatient (CLI) | payer BC, SELFPAY ==
--- NOTE | 2025-01-14 10:45 | DI.RAD_ITS ---
Exam(s) XR FOOT RT COMPLETE EXAM: XR FOOT RT COMPLETE CLINICAL HISTORY: Rt toe pain, M79.674. TECHNIQUE: 2D digital imaging was performed of the right foot. Three images were obtained. AP, oblique and lateral views were obtained. COMPARISON: No exams were available for comparison FINDINGS: BONES: No acute fracture is present. No bony destructive lesion is seen. JOINTS: No dislocation present. SOFT TISSUE: Normal. IMPRESSION: No acute abnormality. DATA REPOSITORY: RADIATION DOSE DELIVERED:
== END 2025-01-14 01:39 ==
LOC: DI 01:19
PROVIDERS: PCP Nurse Practitioner Family; Visit Provider Podiatrist
DX: M79.671 Pain in right foot (principal)
CPT/HCPCS: 73630

== ENCOUNTER 2025-05-25 00:10 | Outpatient (CLI) | payer BC, SELFPAY ==
[2025-05-25 12:38] LABS: ALT 17 U/L (14-59); AST 12 U/L (15-37); Albumin 3.8 g/dL (3.4-5.0); Alkaline Phosphatase 48 U/L (46-116); Anion Gap 7.7 mmol/L (3-11); BUN 16 mg/dL (7-18); Bilirubin, Total 1.4 mg/dL (0.2-1.0); CO2 28.3 mmol/L (21.0-32.0); Calcium 8.6 mg/dL (8.5-10.1); Calculated LDL 90 mg/dL (<100); Chloride 104 mmol/L (98-107); Cholesterol 165 mg/dL (<200); Estimated GFR 93.12 (mL/min/1.73m2); Glucose 82 mg/dL (74-106); HDL Cholesterol 65 mg/dL (>or=50); Potassium 3.8 mmol/L (3.5-5.1); Sodium 140 mmol/L (136-145); Total Protein 6.9 g/dL (6.4-8.2); Triglyceride 54 mg/dL (<150)
== END 2025-05-25 00:11 | disposition home or self-care (01) ==
LOC: LOS 00:10
PROVIDERS: PCP Nurse Practitioner Family; Visit Provider Nurse Practitioner Family
DX: Z13.220 Encounter for screening for lipoid disorders (principal)
CPT/HCPCS: 36415; 80053; 80061